=== PATIENT | female | born 1975 | race Two or more races ===

== ENCOUNTER 2016-05-22 13:06 | Emergency (ER) | payer OTHER ==
--- NOTE | 2016-05-22 13:29 | EDPHY ---
HPI/HX/ROS/PE/MDM Narrative: CHIEF COMPLAINT: Epigastric pain HISTORY OF PRESENT ILLNESS: The patient is a 40-year-old female who presents with epigastric burning onset 6:30 a.m. The patient states this has been an ongoing issue for the past month. It is intermittent in nature and lasts for a few days at a time. She usually takes Tums for this discomfort. Today the patient woke up at 6:30 a.m. with more severe discomfort than usual. She had epigastric pain as well as pain between her shoulder blades. This is different than her previous bouts of heart burn as it is somewhat more severe as well as radiating to the base of the neck and between the shoulder blades . She took Calcium and Ibuprofen, but found no relief. She has no history of abdominal surgery. No personal or familial cardiac history. No fever, chills, chest pain, shortness of breath, palpitations, vomiting, diarrhea, urinary complaints, headache, or lightheadedness. REVIEW OF SYSTEMS: Aside from elements discussed in the HPI, a comprehensive 10-point review of systems was reviewed and is negative. PAST MEDICAL HISTORY: Type II diabetes. No history of hypertension. SOCIAL HISTORY: Nonsmoker. Rare alcohol use. Works at [employer]. VITAL SIGNS: Reviewed by me GENERAL: Well-developed, well-nourished, resting comfortably in no respiratory distress. HEENT: Atraumatic. Eyes: No icterus, no injection. Mouth: moist mucous membranes. No erythema or lesions. Neck: supple with no adenopathy. LUNGS: Clear to auscultation bilaterally, no wheezes, rhonchi or rales. CARDIAC: Regular rate and rhythm, no rubs, murmurs or gallops. ABDOMEN: Soft, nontender, nondistended, bowel sounds normal. BACK: No CVA tenderness. EXTREMITIES: No trauma. No edema. Range of motion is normal throughout. NEURO: Alert and oriented, grossly nonfocal. SKIN: Warm and dry, no rash. PSYCHIATRIC: Normal mentation, no agitation. Portions of this note were transcribed by a medical administrator. I personally performed a history, physical exam, medical decision making, and confirmed accuracy of information the transcribed note. ED Course: The patient is a 40-year-old overweight female with history of type II diabetes who presents with worsened burning substernal pain. The patient has had ongoing heart burn for the past month that she usually treats with Tums. Today she had epigastric pain that radiates to the base of her neck. On exam she has no epigastric tenderness. I will treat her discomfort with a GI cocktail and Protonics. Due to the patient's risk factors, plan for cardiac workup which includes EKG, chest x-ray, labs, and troponin. 12-LEAD EKG: Please see the full report in [facility]. My interpretation: T wave inversions in lead III and AVF. I viewed the images of the chest x-ray myself on the PACS system. Results: Cardiomegaly. See the full radiology report in the imaging section. 3:00 p.m.: I assessed the patient after GI cocktail and protonics. She is feeling better. Her epigastric burning has improved to a 2/10. Plan to call [facility] case management and discuss evaluation and plan. 3:04 p.m.: I spoke to Dr. Esteban, [facility]. Believe patient overall is low risk for acute coronary syndrome. However, due to T-wave inversions, patient will have serial troponins performed in the emergency department, repeat EKG, and urgent stress test scheduled for tomorrow. 5:00 p.m.: Repeat EKG shows no acute changes. Repeat troponin is negative. Plan to discharge patient home. She has a followup appointment with her PCP scheduled for tomorrow. MDM: After history and physical examination, the differential for this patient's presenting complaints was considered, including but not limited to, myocardial ischemia, acute coronary syndrome, reflux, GERD, esophageal spasm, gastritis, chest wall pain, pleural inflammation and pulmonary infectious causes. 40-year-old female presenting with substernal discomfort described as burning which radiates to the base of her throat, and today has been feeling discomfort in the back of her neck and upper thoracic spine. Evaluation for cardiac source is demonstrated in the EKG with T-wave inversions as well as troponins which are negative x2 despite relatively consistent pain for 2 days. Patient does have diabetes as her cardiac risk factor. Plans were made for the patient to have a follow-up appointment with her primary care physician in the morning. Early stress testing has been discussed with the patient and she understands the need to have this done as soon as possible. Patient understands that we cannot be 100% definitive asked to the diagnosis from the emergency department. She understands importance of returning if her symptoms progress or new symptoms developed. Patient understands recommendations to begin omeprazole and follow-up. - Data Points Laboratory Results: Laboratory Results 05/22/16 14:04 05/22/16 14:04 Medications Given: Discontinued Medications Al Hydroxide/Mg Hydroxide (Maalox Susp) 30 ml PO ONCE ONE Stop: 05/22/16 13:36 Last Admin: 05/22/16 14:13 Dose: 30 ml Hydromorphone HCl (Dilaudid) 1 mg IVP EDNOW ONE Stop: 05/22/16 15:38 Last Admin: 05/22/16 18:15 Dose: Not Given Hyoscyamine Sulfate (Levsin, Hyomax-Sl) 0.25 mg PO ONCE ONE Stop: 05/22/16 13:36 Last Admin: 05/22/16 14:13 Dose: 0.25 mg Sodium Chloride (Ns) 500 mls @ 0 mls/hr IV ONCE ONE PRN Reason: As Directed Stop: 05/22/16 13:36 Last Admin: 05/22/16 14:15 Dose: 500 mls Pantoprazole Sodium 40 mg/ (Sodium Chloride) 100 mls @ 200 mls/hr IV EDNOW ONE Stop: 05/22/16 14:06 Last Admin: 05/22/16 14:13 Dose: 100 mls Lidocaine (Lidocaine 2% Viscous) 15 ml PO ONCE ONE Stop: 05/22/16 13:36 Last Admin: 05/22/16 14:13 Dose: 15 ml General Time Seen by Provider: 05/22/16 13:21 Initial Vital Signs: Initial Vital Signs Temperature (C) 36.7 C 05/22/16 13:44 Heart Rate 70 05/22/16 13:44 Respiratory Rate 16 05/22/16 13:44 Blood Pressure 126/71 H 05/22/16 13:44 O2 Sat (%) 98 05/22/16 13:44 O2 Delivery Mode Room Air Allergies/Adverse Reactions: No Known Allergies Allergy (Unverified 05/22/16 13:43) Home Medications: Medication Instructions Recorded Glyburide 05/22/16 Insulin Glargine 05/22/16 Metformin HCl 05/22/16 Simvastatin 05/22/16 Departure - Departure Disposition: Home, Routine, Self-Care Clinical Impression: Epigastric pain Chest pain Qualifiers: Chest pain type: unspecified Qualified Code(s): R07.9 - Chest pain, unspecified Condition: Good Instructions: Chest Pain (ED), Epigastric Pain (ED) Additional Instructions: Followup with your appointment in [place] at 2:20 p.m. tomorrow as scheduled. I would recommend beginning omeprazole 1 tablet daily for the next 2 weeks. This is available [id number]. It is imperative that you follow up at [place] tomorrow as directed. They will arrange urgent stress testing. You have any worsening symptoms, specifically have any recurrent severe pain, nausea or vomiting, lightheadedness, dizziness, fainting, palpitations, shortness of breath, or other concerns, return to the emergency department. Referrals: Amrit Juarez [Other] - As per Instructions Report Scribed for: Kaylee Lopez Report Scribed by: Glo Keene Date of Report: 05/22/16 Time of Report: 13:29
[2016-05-22] MEDS ORDERED: NS 500 ML IV ONE (13:35)
[2016-05-22] MEDS ORDERED: LIDOCAINE 2% VISCOUS 15 ML UDCUP PO ONE (13:35)
[2016-05-22] MEDS ORDERED: HYOSCYAMINE SULFATE 0.125 MG TAB PO ONE (13:35)
[2016-05-22] MEDS ORDERED: MAG HYDROX/AL HYDROX/SIMETH 30 ML UDCUP PO ONE (13:35)
[2016-05-22] MEDS ORDERED: PANTOPRAZOLE SODIUM 40 MG in NS 100 ML IV ONE (13:37)
[2016-05-22 13:50] VITALS: RESP 16
--- NOTE | 2016-05-22 14:06 | CPEKG ---
Heart Rate: 56 RR Interval: 1071 P-R Interval: 140 QRSD Interval: 88 QT Interval: 448 QTC Interval: 433 P [place]: 33 QRS [place]: 12 T Wave [place]: -1 EKG Severity - BORDERLINE ECG - EKG Impression: SINUS RHYTHM EKG Impression: BORDERLINE T ABNORMALITIES, INFERIOR LEADS Electronically Signed By: Yoav Marion 24-May-2016 00:47:41
[2016-05-22 14:13] LABS: % IMMATURE GRANULYOCYTES 0.4 % (0.0-1.1); ABSOLUTE IMMATURE GRANULOCYTES 0.06 10^3/uL (0.00-0.10); ADD DIFF? NO; ADD MORPH? NO; ADD SCAN? NO; ATYPICAL LYMPHOCYTE FLAG 0 (0-99); FRAGMENT RBC FLAG 0 (0-99); HEMATOCRIT 41.6 % (38.0-47.0); HEMOGLOBIN 13.9 g/dL (12.6-16.3); LEFT SHIFT FLG 0 (0-99); LIPEMIA HEMOLYSIS FLAG 80 (0-99); MEAN CELL HEMOGLOBIN 30.8 pg (27.9-34.1); MEAN CELL HEMOGLOBIN CONCENTR. 33.4 g/dL (32.4-36.7); MEAN PLATELET VOLUME 11.3 fL (8.7-11.7); PLATELET CLUMPS FLAG 10 (0-99); PLATELET COUNT 266 10^3/uL (150-400); RED BLOOD CELL COUNT 4.52 10^6/uL (4.18-5.33); RED CELL DISTRIBUTION WIDTH 12.4 % (11.5-15.2)
[2016-05-22 14:42] LABS: ALANINE AMINOTRANSFERASE 32 IU/L (9-52); ALBUMIN 4.2 g/dL (3.5-5.0); ALKALINE PHOSPHATASE 70 IU/L (38-126); ANION GAP 10 mEq/L (8-16); ASPARTATE AMINOTRANSFERASE 22 IU/L (14-46); BILIRUBIN,TOTAL 0.5 mg/dL (0.1-1.4); BILIRUBIN-CONJUGATED 0.4 mg/dL (0.0-0.5); BILIRUBIN-UNCONJUGATED 0.1 mg/dL (0.0-1.1); CARBON DIOXIDE 27 mEq/l (22-31); CHLORIDE 104 mEq/L (97-110); CREATININE 0.8 mg/dL (0.6-1.0); GLOMERULAR FILTRATION RATE > 60; GLUCOSE 79 mg/dL (70-100); POTASSIUM 4.3 mEq/L (3.5-5.2); SODIUM 141 mEq/L (134-144); TOTAL PROTEIN 7.6 g/dL (6.3-8.2)
[2016-05-22 14:52] LABS: TROPONIN I < 0.012 ng/mL (0-0.034)
[2016-05-22] MEDS ORDERED: HYDROmorphONE/DILAUDID 1 MG/ML SYR IVP ONE (15:37)
--- NOTE | 2016-05-22 17:11 | CPEKG ---
Heart Rate: 59 RR Interval: 1017 P-R Interval: 140 QRSD Interval: 92 QT Interval: 464 QTC Interval: 460 P [place]: 34 QRS [place]: 14 T Wave [place]: 5 EKG Severity - NORMAL ECG - EKG Impression: SINUS RHYTHM Electronically Signed By: Yoav Marion 24-May-2016 00:47:48
[2016-05-22 18:15] VITALS: BP 145/86; PULSE 58; TEMP 97.9; O2SAT 99
== END 2016-05-22 18:13 | disposition home or self-care (01) ==
DX: R10.13 Epigastric pain (principal); R07.9 Chest pain, unspecified; E11.9 Type 2 diabetes mellitus without complications
CPT/HCPCS: 96365